=== PATIENT | female | born 1965 | race Native Hawaiian/Other Pacific Islander ===

== ENCOUNTER 2016-12-04 10:45 | Emergency (ER) | payer BC, OTHER ==
[~2016-12-04] VITALS: Ht 160 cm; Wt 56.2 kg
[2016-12-04] MEDS ORDERED: ZESTRIL40 MG OR (11:47)
[2016-12-04] MEDS ORDERED: PAXIL20 MG PO (11:47)
[2016-12-04] MEDS ORDERED: ESTRACE2 MG PO (11:49)
[2016-12-04] MEDS ORDERED: ALPR0.5T24 PO (11:50)
[2016-12-04] MEDS ORDERED: AMBIEN5 MG PO (11:50)
== END 2016-12-04 13:20 | disposition home or self-care (01) ==
LOC: ED 10:45
DX: J01.90 Acute sinusitis, unspecified (principal); H92.02 Otalgia, left ear; R05 Cough; H60.592 Other noninfective acute otitis externa, left ear
CPT/HCPCS: 96372; 99282